=== PATIENT | male | born 1940 | race Caucasian/White ===

== ENCOUNTER → 2017-12-04 11:07 | Outpatient (CLI) | payer MEDICARE, SELFPAY ==
[2017-12-04 12:37] LABS: Hematocrit 39.1 % (40-54); Mean Corp Hgb Conc 33.2 g/gl (32-36); Mean Corpuscular Volume 93.1 fL (80-94); Mean Platelet Vol. 9.8 fl (6.2-12.0); Platelet Count 185 K/mm3 (150-450); RBC Distribution Width CV 14.3 % (11.6-14.6); RBC Distribution Width SD 47.3 fl (35.1-43.9); White Blood Count 4.8 K/mm3 (4.4-11.0)
[2017-12-04 12:38] LABS: Scan Indicated on CBC? Y/N NO
[2017-12-04 13:22] LABS: Vitamin B12 481 pg/mL (211-911); Vitamin D,25 Hydroxy 26.6 ng/mL (29.95-100.01)
[2017-12-04 13:25] LABS: AST(SGOT) 17 U/L (15-37); Alanine Aminotransfer ALT/SGPT 16 U/L (16-61); Albumin, Serum 3.5 g/dL (3.2-5.0); Alkaline Phosphatase 123 U/L (45-117); Anion Gap 8 (5-15); BUN 16 mg/dL (7-18); BUN/Creat Ratio 17.6 RATIO (10-20); Calcium,Total 9.6 mg/dL (8.5-10.1); Chloride 107 mmol/L (98-107); Creatinine, Serum 0.91 mg/dL (0.70-1.30); EST Glomerular Filtration Rate 86 mL/min (>60); Est Glom Filt Rate - Afr Amer 104 mL/min (>60); Globulin 3.6 g/dL (2.2-4.2); Glucose 81 mg/dL (74-106); Potassium 3.6 mmol/L (3.5-5.1); Protein, Total 7.1 g/dL (6.4-8.2); Sodium Level 141 mmol/L (136-145); Thyroid Stim Hormone (TSH) 1.72 uIU/mL (0.358-3.74)
== END ==
PROVIDERS: Family Provider Family Medicine; PCP Family Medicine; Visit Provider Family Medicine
DX: I10 Essential (primary) hypertension (principal); D51.8 Other vitamin B12 deficiency anemias; R41.3 Other amnesia; E55.9 Vitamin D deficiency, unspecified
CPT/HCPCS: 36415; 80053; 82306; 82607; 84443; 85027

== ENCOUNTER → 2018-09-23 11:40 | Outpatient (CLI) | payer MEDICARE, SELFPAY ==
[2018-09-23 14:17] LABS: Absolute Lymphocyte Count 0.93 X10^3/ul (0.83-4.51); Absolute Neutrophil Count 7.7 X10^3/uL (2.0-7.7); Basophil# 0.02 X10^3/uL; Basophil% 0.2 % (0-1); Eosinophil# 0.01 X10^3/uL; Eosinophils% 0.1 % (0-5); Hematocrit 36.1 % (40-54); Hemoglobin 11.8 g/dl (13.0-16.5); Lymphocyte # 0.93 X10^3/ul (4.0); Lymphocyte % 9.9 % (19-41); Mean Corp Hgb Conc 32.7 g/gl (32-36); Mean Corpuscular Volume 94.8 fL (80-94); Mean Platelet Vol. 9.8 fl (6.2-12.0); Monocyte# 0.72 X10^3/uL; Monocyte% 7.6 % (0-10); Neutrophil # 7.72 X10^3/uL (2.7-7.7); Platelet Count 212 K/mm3 (150-450); RBC Distribution Width CV 14.9 % (11.6-14.6); RBC Distribution Width SD 51.5 fl (35.1-43.9); Red Blood Count 3.81 M/mm3 (4.6-6.2); White Blood Count 9.4 K/mm3 (4.4-11.0)
[2018-09-23 14:18] LABS: Differential Indicated SCAN CRITERIA MET; POSITIVE COUNT NO; POSITIVE DIFFERENTIAL NO; POSITIVE MORPHOLOGY YES
[2018-09-23 14:32] LABS: ALB/GLOB Ratio 0.9 RATIO (0.9-2.4); AST(SGOT) 10 U/L (15-37); Alanine Aminotransfer ALT/SGPT 14 U/L (16-61); Albumin, Serum 3.5 g/dL (3.2-5.0); Alkaline Phosphatase 166 U/L (45-117); Anion Gap 12 (5-15); BUN 21 mg/dL (7-18); Calcium,Total 9.9 mg/dL (8.5-10.1); Chloride 107 mmol/L (98-107); EST Glomerular Filtration Rate 77 mL/min (>60); Erythrocyte Sedimentation Rate 30 mm/hr (0-20); Est Glom Filt Rate - Afr Amer 93 mL/min (>60); Globulin 3.9 g/dL (2.2-4.2); Glucose 95 mg/dL (74-106); Potassium 3.4 mmol/L (3.5-5.1); Prealbumin 18.2 mg/dL (20.0-40.0); Protein, Total 7.4 g/dL (6.4-8.2); Sodium Level 142 mmol/L (136-145); Thyroid Stim Hormone (TSH) 1.96 uIU/mL (0.358-3.74)
[2018-09-23 14:35] LABS: Differential Comment SCANNED; Vitamin D,25 Hydroxy 21.6 ng/mL (29.95-100.01)
[2018-09-23 14:36] LABS: Anisocytosis 2+; Macrocytosis 1+; Microcytosis 1+
== END ==
PROVIDERS: Family Provider Family Medicine; PCP Family Medicine; Visit Provider Family Medicine
DX: R63.4 Abnormal weight loss (principal)
CPT/HCPCS: 36415; 80053; 82306; 84134; 84443; 85025; 85652

== ENCOUNTER → 2019-03-28 15:18 | Outpatient (CLI) | payer MEDICARE, SELFPAY ==
[2019-03-28 17:50] LABS: Anion Gap 12 (5-15); BUN 29 mg/dL (7-18); BUN/Creat Ratio 25.2 RATIO (10-20); Calcium,Total 10.4 mg/dL (8.5-10.1); Chloride 107 mmol/L (98-107); Creatinine, Serum 1.15 mg/dL (0.70-1.30); EST Glomerular Filtration Rate 65 mL/min (>60); Est Glom Filt Rate - Afr Amer 79 mL/min (>60); Glucose 99 mg/dL (74-106); Potassium 3.6 mmol/L (3.5-5.1); Prealbumin 20.8 mg/dL (20.0-40.0); Sodium Level 145 mmol/L (136-145)
[2019-03-29 09:56] LABS: Vitamin B12 > 2000 pg/mL (211-911); Vitamin D,25 Hydroxy 22.6 ng/mL (29.95-100.01)
[2019-03-29 14:33] LABS: Magnesium 2.4 mg/dL (1.6-2.6); Phosphorus 3.4 mg/dL (2.5-4.9)
[2019-03-29 14:49] LABS: PTHIN 46.8 pg/mL (18.4-80.1)
== END ==
PROVIDERS: Family Provider Family Medicine; PCP Family Medicine; Referring Provider Family Medicine; Visit Provider Family Medicine
DX: I10 Essential (primary) hypertension (principal); R41.3 Other amnesia; E55.9 Vitamin D deficiency, unspecified; D51.8 Other vitamin B12 deficiency anemias
CPT/HCPCS: 36415; 80048; 82306; 82607; 83735; 83970; 84100; 84134

== ENCOUNTER → 2019-04-21 12:19 | Outpatient (CLI) | payer MEDICARE, SELFPAY ==
[2019-04-21 13:51] LABS: Hematocrit 37.1 % (40-54); Hemoglobin 11.9 g/dL (13.0-16.5); Mean Corp Hgb Conc 32.1 g/dL (32-36); Mean Corpuscular Volume 96.6 fL (80-94); Mean Platelet Vol. 9.8 fl (6.2-12.0); Platelet Count 224 K/mm3 (150-450); RBC Distribution Width CV 13.8 % (11.6-14.6); RBC Distribution Width SD 49.1 fl (35.1-43.9); Red Blood Count 3.84 M/mm3 (4.6-6.2); White Blood Count 5.9 K/mm3 (4.4-11.0)
[2019-04-21 14:11] LABS: PTHIN 56.4 pg/mL (18.4-80.1)
[2019-04-21 14:18] LABS: Anion Gap 6 (5-15); BUN 19 mg/dL (7-18); BUN/Creat Ratio 20.6 RATIO (10-20); Calcium,Total 9.5 mg/dL (8.5-10.1); Chloride 111 mmol/L (98-107); Creatinine, Serum 0.92 mg/dL (0.70-1.30); EST Glomerular Filtration Rate 84 mL/min (>60); Est Glom Filt Rate - Afr Amer 102 mL/min (>60); Glucose 101 mg/dL (74-106); Magnesium 2.4 mg/dL (1.6-2.6); Phosphorus 2.4 mg/dL (2.5-4.9); Potassium 3.7 mmol/L (3.5-5.1); Sodium Level 144 mmol/L (136-145)
== END ==
PROVIDERS: Family Provider Family Medicine; PCP Family Medicine; Referring Provider Family Medicine; Visit Provider Family Medicine
DX: R55 Syncope and collapse (principal); E83.52 Hypercalcemia
CPT/HCPCS: 36415; 80048; 82330; 83735; 83970; 84100; 84443; 85027

== ENCOUNTER 2019-05-19 10:37 | Observation (INO) | payer MEDICARE, SELFPAY ==
[2019-05-19] VITALS (7 sets, daily range): BP systolic 122–150; BP diastolic 61–117; PULSE 56–89; RESP 16–20; TEMP 36.4–37.1; O2SAT 95–100; BMI 23.6; BMI 21.8
--- NOTE | 2019-05-19 11:44 | EKG12_ITS ---
Test Reason : ALT LOC Blood Pressure : / mmHG Vent. Rate : 087 BPM Atrial Rate : 087 BPM P-R Int : 166 ms QRS Dur : 096 ms QT Int : 414 ms P-R-T Axes : 062 041 -20 degrees QTc Int : 498 ms Sinus rhythm with frequent Premature ventricular complexes Left ventricular hypertrophy with repolarization abnormality Prolonged QT Abnormal ECG Confirmed by AMADA FAN, MARCE ([id number]), electronic news gathering editor DARREN DANIEL ([id number]) on 05/20/2019 1:26:36 PM Referred By: ANGIE Confirmed By:AMILCAR YBARRA MD
--- NOTE | 2019-05-19 11:44 | CT_ITS ---
STUDY: CT BRAIN WITHOUT CONTRAST REASON FOR EXAM: Male, 79 years old. Confusion. RADIATION DOSAGE (If Supplied By Facility): CTDIvol = ( 44.99 ) mGy, DLP = ( 863.60 ) mGycm TECHNIQUE: Transaxial CT imaging of the brain was performed without administration of intravenous contrast material. Individualized dose optimization techniques were used for this CT. COMPARISON: Comparison is made with prior study November 19, 2015. FINDINGS: Normal soft tissue structures. Normal calvarium. There is mild cerebral atrophy with widening of the extra-axial spaces and ventricular dilatation. There are areas of decreased attenuation within the white matter tracts of the supratentorial brain, consistent with microvascular disease changes. Normal basal ganglia and thalami. Normal brainstem. There is mild cerebellar atrophy. There is no intracranial hemorrhage. There are no findings of an acute ischemic infarction. Atherosclerotic calcification of the vertebral arteries and cavernous portions of the internal carotid arteries bilaterally. Normal visualized paranasal sinuses. CT/Brain/Head without Contrast IMPRESSION: Chronic involutional changes of the brain. Electronically Signed: Cuong Pierson, at 12:48 EDT , Service support ,
--- NOTE | 2019-05-19 11:47 | RAD_ITS ---
STUDY: X-RAY CHEST REASON FOR EXAM: Male, 79 years old. Altered mental status. Confusion. TECHNIQUE: Single AP portable view of the chest. COMPARISON: Comparison is made with prior study November 19, 2015. FINDINGS: EKG electrodes are seen. Stable mild increased linear markings at the lung bases suggestive of linear scarring. There is no demonstrated pleural abnormality. Normal size heart. Normal mediastinum and rory. Normal visualized pulmonary arteries. There is atherosclerotic calcification of the aortic arch with tortuosity. There is a levoscoliosis of the thoracic spine. Normal visualized ribs, clavicles, and shoulders. Large hiatal hernia. RAD/Chest 1 View (Portable) IMPRESSION: Large hiatal hernia. Electronically Signed: Cuong Pierson, at 12:22 EDT , Service support ,
[2019-05-19 12:20] LABS: Absolute Lymphocyte Count 0.73 X10^3/uL (0.83-4.51); Absolute Neutrophil Count 10.5 X10^3/uL (2.0-7.7); Basophil# 0.07 X10^3/uL; Basophil% 0.6 % (0-1); Eosinophil# 0.05 X10^3/uL; Eosinophils% 0.4 % (0-5); Hematocrit 38.3 % (40-54); Hemoglobin 12.5 g/dL (13.0-16.5); Lymphocyte # 0.73 X10^3/ul (4.0); Lymphocyte % 5.8 % (19-41); Mean Corp Hgb Conc 32.6 g/dL (32-36); Mean Corpuscular Hgb 30.7 pg (27.0-32.0); Mean Corpuscular Volume 94.1 fL (80-94); Mean Platelet Vol. 9.7 fl (6.2-12.0); Monocyte# 0.58 X10^3/uL; Monocyte% 4.6 % (0-10); NRBC Flagged by Analyzer 0 % (0-5); Neutrophil # 10.53 X10^3/uL (2.7-7.7); Platelet Count 263 K/mm3 (150-450); RBC Distribution Width CV 13.9 % (11.6-14.6); RBC Distribution Width SD 47.6 fl (35.1-43.9); Red Blood Count 4.07 M/mm3 (4.6-6.2); White Blood Count 12.5 K/mm3 (4.4-11.0)
[2019-05-19 12:48] LABS: AST(SGOT) 35 U/L (15-37); Alanine Aminotransfer ALT/SGPT 26 U/L (16-61); Albumin, Serum 2.5 g/dL (3.2-5.0); Alkaline Phosphatase 147 U/L (45-117); Anion Gap 7 (5-15); BUN 15 mg/dL (7-18); Bilirubin, Direct 0.18 mg/dL (0.00-0.30); Chloride 105 mmol/L (98-107); Creatinine, Serum 0.88 mg/dL (0.70-1.30); EST Glomerular Filtration Rate 89 mL/min (>60); Est Glom Filt Rate - Afr Amer 107 mL/min (>60); Estimated Creatinine Clearance 68.07 ml/min; Globulin 4.3 g/dL (2.2-4.2); Glucose 115 mg/dL (74-106); Lipase 68 U/L (73-393); Potassium 4.7 mmol/L (3.5-5.1); Protein, Total 6.8 g/dL (6.4-8.2); Sodium Level 139 mmol/L (136-145)
[2019-05-19 12:52] LABS: Mucous, Urine 0 SEEN /hpf (<or=2+); Red Blood Cells-Urine 0 SEEN /hpf (0-5)
[2019-05-19 12:53] LABS: Color, Urine Yellow (Yellow); Glucose, Dipstick Normal (Normal); Ketone-Dipstick Negative (Negative); Leukocyte Esterase-Dipstick 25 /ul (Negative); Nitrite-Dipstick Negative (Negative); Occult Blood-Urine 25 /ul (Negative); Protein-Dipstick 30 mg/dl (Negative); Urine Bilirubin Dipstick Negative (Negative); Urine Clarity Clear (Clear); Urine Urobilinogen Normal (Normal)
[2019-05-19 12:55] LABS: Lactic Acid 1.8 mmol/L (0.4-2.0)
[2019-05-19 13:05] LABS: Bacteria RARE /hpf (None Seen); Squamous Epithelial Cells - UA 0-5 SEEN /hpf (0-5); White Blood Cells 0-5 SEEN /hpf (0-5)
[2019-05-19] MEDS: 0.9% Normal Saline 1,000 ML 150 ML IV (13:15)
--- NOTE | 2019-05-19 15:25 | CASEMGMT ---
RN CM Assessment Introduced role of RN CM to patient, Dtr Rae and Dtr Cinthia at bedside.? Patient is alert, baseline mentation per Dtrs is age appropriate, oriented to person, situation, but does get confused with time/date such as year- states d/t no need to worry about it. Per Dtrs patient is now getting back to his baseline with mentation currently. ?Care providers, pharmacy, and demographics verified with Dtrs. Patient Physical Address: [address] [place] [address], [address], [facility] [id number] Presentation: Sent from [facility]- just got there last night, d/t decreased appetite, periods of Apnea, and ALOC. Per Dtrs was at [facility] and Dc'd to [facility], had a UTI with confusion. Re-Admit: No Barriers/Issues: Dtrs would like to speak with re:DC plan for SNF and what would be most appropriate. There for PT/OT. Dtrs state that their [facility] choice was [facility] and were getting things finalized when they said they could not take him d/t being on Haldol. States second choice was [facility]. State last dose of Haldol was yesterday. Now going to start on Seroquel. State concern with patient living alone and having difficulty with Docudose d/t not knowing what day or time it is. States that they faxed over paperwork on Thursday to [employer] to try to get Aide assistance to assist with prompting for medications and eating. [facility] patient fell approx 1 month ago and was encouraged to use a cane but does not and still ambulating Independently. [facility] patient is going to need a walker soon. Has 3 dtrs and multiple grandchildren, community health good support system. PCP: Freddy Park Specialists: Pain- Dr Adamson Preferred Pharmacy: Usually uses [facility], but will use the SNF pharmacy on [address] Insurance: [employer] HMO Rx Benefit:?Yes LNOK: Dtr Rae Elizabeth, Dtr Cinthia, Dtr Humera Rose LW/HPOA: Yes both, aware not on file with [facility], states will bring in a copy. HPOA- Dtr Rae Elizabeth Living Arrangements:? Lives alone in a ground level apartment in [facility], with no steps to enter. ADL?s: Independent with ambulation and ADLs, except medication issue- see above. Transportation: Dtrs transport, denies any issues. DME: None HHC: None SNF: Currently at [facility] as of last night Goal: Dtrs would like to s/w regarding DC plan-see above issues/concern. Dtr Rae Elizabeth #[phone], Dtr Cinthia #[phone], Dtr Humera Rose # verified correct on demographics. DC PLAN: SNF. Joan Mccloud RNCM
[2019-05-19] MEDS: 0.9% Normal Saline 1,000 ML 100 ML IV (16:12)
--- NOTE | 2019-05-19 16:12 | ED.VISSUMM ---
- ER Visit Summary Date of Service: 05/19/19 Chief Complaint: Confusion and weakness History of Present Illness: The patient is a 79 M who was originally living at home. On Thursday morning he woke sustained a fall and was seen at outside facility. There he was diagnosed with a left greater trochanter fracture was felt to be nonoperative. He has had prior left hip prosthesis placed. Is felt that the fall was due to a UTI he was placed on Keflex. He was admitted into the hospital. Family tells me he was started on morphine and also was receiving Haldol for some agitation and sundowning-like symptoms. He baseline probably has a mild degree of dementia having had difficulty with dates and names. After 2 days in the hospital [facility]. Family states he really has not been eating or drinking very much especially over the last 2 days. They were also told that they were concerned he may have a heart rhythm abnormality. He states that about a month ago he wore a Holter monitor maybe he had A. fib. No fevers. Physical Examination: Afebrile vital signs are stable Gen: Well-nourished well-developed Head: Normocephalic atraumatic Eyes: Perrl EOMI ENT: TMs clear no rhinorrhea dry mucous membranes Neck: Supple no lymphadenopathy no JVD nontender CVS: Regular rate rhythm 2 out of 6 systolic murmur Respiratory: No distress clear to auscultation bilaterally chest nontender Abdomen: Soft nontender nondistended normal bowel sounds no masses Back: Nontender Extremity: Pain with movement of left hip no edema Skin: Normal color no rash Neuro: Lethargic but will answer. Moves all extremities. Psych: Normal affect normal mood Test Results: Basic labs showed a white count 12.5. Troponin negative lactic acid 1.8. Urinalysis normal. Chest x-ray showed a large hiatal hernia. CT brain negative. EKG sinus rate of 87 with frequent Emergency Department Course and Treatment: I think the patient basically has hydration and delirium due to combination of underlying dementia in combination with Haldol and morphine along with being taken out of his normal living quarters in the setting of a broken hip. Plan will be for admission limiting offending agents and continued hydration. Impression: 1. Medication induced delirium 2. Dehydration This note was generated with [employer] or [employer] software. It may contain incorrect words, spelling, and punctuation that were not noted in review of the chart prior to signing ED Disposition - Plan for ED Patient: Disposition: Acute Care [facility]
--- NOTE | 2019-05-19 16:58 | HP.PCM_ITS ---
Problem List (1) Closed left hip fracture Status: Acute (2) Dementia Status: Acute (3) BPH (benign prostatic hyperplasia) Status: Acute (4) Delirium Status: Acute (5) Iron deficiency anemia Status: Acute (6) Depression Status: Acute History of Present Illness Date of Admission: 05/19/19 Chief Complaint: Delirium The patient is a 79 year old M with PMH as below who presents from the halfway after being discharged from [facility]. A few days ago he fell and had a greater trochanteric hip fracture on the left that was deemed nonoperable at that time. He was also found to have was felt to be a UTI leading to his confusion. He was started on Keflex as an inpatient and then and and was also then started on Haldol twice daily. He has not eaten for the last 3 days and was transferred from [facility] to [facility]. At the halfway it was thought that maybe he might be dehydrated therefore they stopped his Haldol and they tried to get IV fluids are but they could not get an IV so they sent him here to the ER. On transfer to the ER he was very drowsy and he could not have a conversation with him, by the time that I saw him he was alert and oriented to himself and his age. He did not know the year where he was. In the ER his CBC was significant for a white blood cell count of 12.5 and a left shift and his lactic acid was normal and his electrolytes were unremarkable, and urine was also unremarkable. Past Medical History Allergies oseltamivir [From Tamiflu] Allergy (Verified 05/19/19 10:43) Unknown Home Medications: Ambulatory Orders Medication Instructions Recorded Diltiazem CD [Cardizem CD] 240 mg PO DAILY 11/12/15 Paroxetine HCl [Paxil] 40 mg PO DAILY 11/12/15 Tamsulosin HCl [Flomax] 0.4 mg PO DAILY 11/12/15 Aspirin [Aspir 81] 81 mg PO DAILY 05/19/19 Bupropion HCl [Wellbutrin Xl] 300 mg PO DAILY 05/19/19 Cephalexin [Keflex] 250 mg PO Q12 05/19/19 Donepezil HCl [Aricept] 10 mg PO QHS 05/19/19 Ferrous Sulfate [Ferosul] 325 mg PO DAILY 05/19/19 Memantine Hydrochloride [Namenda] 5 mg PO QHS 05/19/19 Trazodone HCl 100 mg PO QHS 05/19/19 Surgical History: total hip arthroplasty - left, - - Ankle and back surgery Lives: Long-Term Smoking Status: Current some day smoker Tobacco Use: Cigarettes Alcohol: None Drugs: None - *Family History Maternal History Items: No pertinent history Paternal History Items: No pertinent history Review of Systems Constitutional: Denies: Chills, Fever, Weight Change HEENT: Denies: Head Aches, Sinus Congestion, Sinus Drainage Cardiovascular: Denies: Chest Pain, Palpitations Respiratory: Denies: Cough, Shortness of breath at rest, Sputum production Gastrointestinal: Denies: Abdominal Pain, Nausea, Vomiting Genitourinary: Denies: Dysuria Musculoskeletal: Reports: Leg Pain - Left hip. Denies: Joint Pain, Joint Tenderness Skin: Denies: Rash, Wounds Neurological: Denies: Numbness, Tingling, Focal weakness Psychiatric: Denies: Anxiety, Depression Hematologic/ Lymphatic: Denies: Easy Bruising, Easy Bleeding VTE Information - Inpt Only VTE Present on Admission: No Patient Problems: Active and Suspected Problems Closed left hip fracture (Acute) Dementia (Acute) BPH (benign prostatic hyperplasia) (Acute) Delirium (Acute) Iron deficiency anemia (Acute) Depression (Acute) - Physical Exam General: Alert, Cooperative, No apparent distress, - - Oriented to person and he knows she is in a hospital HEENT: Atraumatic, PERRLA, EOMI, Normocephalic Oral: Dry Mucosa Neck: Supple, No JVD Lungs: Clear to auscultation, Normal air movement, No rhonchi, No wheeze, No rales, Diminished Cardiovascular: Regular rate, Regular Rhythm, Normal S1, Normal S2, Murmur - 3 out of 6 CECILIO RUSB which is known Abdomen: Soft, Non Tender, Non-Distended, No Hepato-splenomegaly Extremities: No edema, Capillary Refill Less than 3 Seconds Skin: No rashes, No breakdown Musculoskeletal: Tenderness - To palpation of left hip no skin breakdown or signs of infection Neurological: Neuro grossly intact, Sensory exam intact to light touch and pain Psych/Mental Status: Normal Affect, Appropriate, - - Is a little bit tired but much more alert according to the daughters compared to this morning Vital Signs Temp Pulse Resp BP Pulse Ox 98.8 F 84 18 138/88 H 98 05/19/19 15:56 05/19/19 16:20 05/19/19 15:56 05/19/19 15:56 05/19/19 15:56 Oxygen Flow Rate (L/min) 2 Oxygen Delivery Method Nasal Cannula Weight: 147 lb 11.355 oz Body Mass Index (BMI) 21.8 Intake and Output for Last 24 Hours 05/17/19 05/18/19 05/19/19 23:59 23:59 23:59 Intake Total 442.5 / 442.5 Balance 442.5 / 442.5 Laboratory Tests Past 24 Hrs 05/19/19 05/19/19 05/19/19 12:00 12:00 12:05 WBC 12.5 H RBC 4.07 L Hgb 12.5 L Hct 38.3 L MCV 94.1 H MCH 30.7 MCHC 32.6 RDW Std Deviation 47.6 H RDW Coeff of Mandy 13.9 Plt Count 263 MPV 9.7 Immature Gran % (Auto) 4.600 H Neut % (Auto) 84.0 H Lymph % (Auto) 5.8 L [place] % (Auto) 4.6 Eos % (Auto) 0.4 Baso % (Auto) 0.6 Absolute Neuts (auto) 10.5 H Absolute Lymphs (auto) 0.73 L Nucleated RBC % 0 Sodium 139 Potassium 4.7 Chloride 105 Carbon Dioxide 27.0 Anion Gap 7 BUN 15 Creatinine 0.88 Estim Creat Clear Calc 68.07 Est GFR (MDRD) Af Amer 107 Est GFR (MDRD) Non-Af 89 BUN/Creatinine Ratio 17.0 Glucose 115 H Lactic Acid 1.8 Calcium 10.0 Total Bilirubin 0.70 Direct Bilirubin 0.18 AST 35 ALT 26 Alkaline Phosphatase 147 H Troponin I < 0.015 Total Protein 6.8 Albumin 2.5 L Globulin 4.3 H Lipase 68 L Urine Color Urine Clarity Urine pH Ur Specific Paulina Urine Protein Urine Glucose (UA) Urine Ketones Urine Occult Blood Urine Nitrite Urine Bilirubin Urine Urobilinogen Ur Leukocyte Esterase Urine RBC Urine WBC Ur Squamous Epith Cells Urine Bacteria Urine Mucus 05/19/19 12:45 WBC RBC Hgb Hct MCV MCH MCHC RDW Std Deviation RDW Coeff of Mandy Plt Count MPV Immature Gran % (Auto) Neut % (Auto) Lymph % (Auto) [place] % (Auto) Eos % (Auto) Baso % (Auto) Absolute Neuts (auto) Absolute Lymphs (auto) Nucleated RBC % Sodium Potassium Chloride Carbon Dioxide Anion Gap BUN Creatinine Estim Creat Clear Calc Est GFR (MDRD) Af Amer Est GFR (MDRD) Non-Af BUN/Creatinine Ratio Glucose Lactic Acid Calcium Total Bilirubin Direct Bilirubin AST ALT Alkaline Phosphatase Troponin I Total Protein Albumin Globulin Lipase Urine Color Yellow Urine Clarity Clear Urine pH 7.0 Ur Specific Paulina 1.010 Urine Protein 30 H Urine Glucose (UA) Normal Urine Ketones Negative Urine Occult Blood 25 H Urine Nitrite Negative Urine Bilirubin Negative Urine Urobilinogen Normal Ur Leukocyte Esterase 25 H Urine RBC 0 SEEN Urine WBC 0-5 SEEN Ur Squamous Epith Cells 0-5 SEEN Urine Bacteria RARE Urine Mucus 0 SEEN Assessment/Plan All Active Problems Closed left hip fracture (Acute) Dementia (Acute) BPH (benign prostatic hyperplasia) (Acute) Delirium (Acute) Iron deficiency anemia (Acute) Depression (Acute) 1. Delirium and altered mental status secondary to medications, dehydration, and recent UTI -He is received 5 days of Keflex treatment therefore will discontinue his Keflex and monitor his white blood cell count as well as his fevers and then can reinitiate treatment based on clinical exam -We will hold all Haldol and start with a very low dose of Seroquel for at night only and monitor -Continue with IV fluids -He is much more alert and hopefully this was just secondary to delirium and the significant amount of morphine that he was receiving in the hospital for his hip pain -We will hold off of narcotics for now for his hip pain just Tylenol if we need to do more than he can proceed with a low-dose oxycodone 2. Left greater trochanteric hip fracture -Nonoperable -Pain meds as needed, the area does not look infected -PT/OT with plans to return to rehab for therapy 3. HTN -Blood pressures been stable -Continue with Cardizem and aspirin 4. Dementia/depression -There has been some decline per the family and his functioning over the last several years -continue with Namenda and Aricept -He is stable from a depression standpoint though according to 1 of the ER nurses he did cry a couple times on their evaluation because the nurse reminded him of his granddaughter, will continue with Wellbutrin and Paxil 5. BPH -Stable -Continue with Flomax DVT: Lovenox Code Visit OBSV E&M: 35614 Initial observation care L2
[2019-05-19] MEDS: QUEtiapine 25 MG Tablet PO (22:02)
[2019-05-19] MEDS: Memantine Hydrochloride 5 MG Tablet PO (22:02)
[2019-05-19] MEDS: Donepezil HCl 10 MG Tablet PO (22:02)
[2019-05-19] MEDS: Acetaminophen 325 MG Tablet 650 MG PO (22:05)
[2019-05-20] MEDS: 0.9% Normal Saline 1,000 ML 100 ML IV ×2 (02:15→12:07)
[2019-05-20 04:00] VITALS: BP 157/91; PULSE 76; RESP 16; TEMP 36.6; O2SAT 97
--- NOTE | 2019-05-20 05:16 | NURSING ---
pt pulled his right fa iv site out, pt had another site.
[2019-05-20 07:39] LABS: Absolute Lymphocyte Count 0.85 X10^3/uL (0.83-4.51); Basophil# 0.08 X10^3/uL; Basophil% 0.8 % (0-1); Eosinophil# 0.15 X10^3/uL; Eosinophils% 1.5 % (0-5); Hemoglobin 11.1 g/dL (13.0-16.5); Lymphocyte # 0.85 X10^3/ul (4.0); Lymphocyte % 8.4 % (19-41); Mean Corp Hgb Conc 32.6 g/dL (32-36); Mean Platelet Vol. 9.5 fl (6.2-12.0); Monocyte# 0.49 X10^3/uL; Monocyte% 4.8 % (0-10); NRBC Flagged by Analyzer 0 % (0-5); Neutrophil # 8.04 X10^3/uL (2.7-7.7); Neutrophil % 79.6 % (47-70); Platelet Count 243 K/mm3 (150-450); RBC Distribution Width CV 13.7 % (11.6-14.6); RBC Distribution Width SD 47.9 fl (35.1-43.9); Red Blood Count 3.58 M/mm3 (4.6-6.2); White Blood Count 10.1 K/mm3 (4.4-11.0)
[2019-05-20 07:48] LABS: Anion Gap 5 (5-15); BUN 14 mg/dL (7-18); BUN/Creat Ratio 18.6 RATIO (10-20); Calcium,Total 9.3 mg/dL (8.5-10.1); Chloride 109 mmol/L (98-107); Creatinine, Serum 0.75 mg/dL (0.70-1.30); EST Glomerular Filtration Rate 106 mL/min (>60); Est Glom Filt Rate - Afr Amer 129 mL/min (>60); Estimated Creatinine Clearance 56.76 ml/min; Glucose 90 mg/dL (74-106); Potassium 3.7 mmol/L (3.5-5.1); Sodium Level 141 mmol/L (136-145)
[2019-05-20 10:00] VITALS: BP 117/72; PULSE 59; RESP 18; TEMP 36.6; O2SAT 97
[2019-05-20] MEDS: buPROPion (XL) 300 MG TABLET.XL PO (10:08)
[2019-05-20] MEDS: Ferrous Sulfate 325 MG Tablet PO (10:08)
[2019-05-20] MEDS: Aspirin E.C. 81 MG Tablet PO (10:08)
[2019-05-20] MEDS: Enoxaparin 40 MG/0.4 ML Syringe SC (10:08)
[2019-05-20] MEDS: dilTIAZem CD 240 MG Capsule PO (10:09)
[2019-05-20] MEDS: Tamsulosin HCl 0.4 MG Capsule PO (10:09)
--- NOTE | 2019-05-20 10:38 | CASEMGMT ---
Social Work SW met with pt and daughter Cinthia in room. Per Cinthia, Pt was previously at [facility] and family wanted placement at [facility]. [facility] was unable to accept because pt was on Haldol. Pt transferred to [facility]. Pt now at [facility] and pt Haldol has been d/c and seroquel started. Cinthia requesting SW check with [facility] to see if they will reconsider admission. If [facility] is still unable to accept, pt will return to [facility]. left with Naina at [facility] and clinicals faxed. Will await determination if [facility] can accept pt. ERWIN Mendoza
--- NOTE | 2019-05-20 11:09 | PCM.TXEXTCAR ---
- Diet 05/19/19 15:58 Diet: Regular Diet Food consistency:: Regular Liquid Consistency:: Regular/Thin Is pt able to select menu?: No - Routine Orders/Code Status Code Status: DNRCC-A - Wound(s) LT FA Wound Type: Skin Tear LT KNEE Wound Type: Abrasion LT POSTERIOR SHOULDER - HOLLAND PROMINENCE Wound Type: Pressure Injury right hip holland areas Wound Type: holland areas, red - Therapies Weight Bearing: Full weight bearing Physical Therapy: Eval and Treat Occupational Therapy: Eval and Treat - Allergies/Procedures Done in Hospital Allergies/Adverse Reactions: Allergies oseltamivir [From Tamiflu] Allergy (Verified 05/19/19 10:43) Unknown Procedures: None - Type of Care/Length of Stay Estimated LOS: Convalescent Care Less Than 30 days Type of Care Needed: Skilled Rehab Potential: Fair Prognosis: Fair - Additional Orders/Day of Discharge Day of Discharge: 05/20/19 - Follow Up Care Primary Care Physician: Reno Park MD [Primary Care Provider] - Within 2 Weeks Please Follow Up With: Movement disorder clinic When: 3-6 weeks
--- NOTE | 2019-05-20 11:11 | DS.PCM_ITS ---
Discharge Date and Diagnosis - Problem List Patient Problems: Active and Suspected Problems Delirium (Acute) Date of Admission: 05/19/19 Date of Discharge: 05/20/19 - Primary Discharge Diagnosis Active and Suspected Problems Closed left hip fracture (Acute) Dementia (Acute) BPH (benign prostatic hyperplasia) (Acute) Delirium (Acute) Iron deficiency anemia (Acute) Depression (Acute) Hospital Course and Treatment Operations: None Procedures: None Summary of Care Provided: The patient is a 79 year old M presents with confusion from [facility]. Patient was discharged to [facility] on the after sustaining a fracture to nonweightbearing aspect of his left hip. Patient was noted to be confused while he was there but he was there less than 18 hours. Sent here and evaluated and his work-up was unremarkable. Potentiating medications were held and patient's mental status improved. Patient's daughter, Cinthia, is present today states that he looks better than she is seen in the past week to week and a half. I have advised to continue to hold his Namenda as well as Aricept and to avoid any kind of narcotic medications. Patient has a known history of dementia and has been evaluated by psychiatrist who states that he has age- appropriate dementia. I am also concerned patient may have a other process, such as movement disorder such as Parkinson's. On exam, patient has a mast feces he has impaired vertical saccades. I have advised her to have a follow-up with movement disorder specialist to be more thoroughly evaluated for possibility of such a disease process. [] Patient Problems: Active and Suspected Problems Delirium (Acute) - Physical Exam General: Alert, No apparent distress HEENT: Atraumatic, Normocephalic, - - Masked facies. Impaired vertical saccades Oral: Moist Mucosa, No Gingival or Mucosal Lesions/ Ulcerations Psych/Mental Status: Appropriate, Flat Affect Vital Signs Temp Pulse Resp BP Pulse Ox 36.6 C 59 L 18 117/72 97 05/20/19 10:00 05/20/19 10:00 05/20/19 10:00 05/20/19 10:05/20/19 10:00 Oxygen Flow Rate (L/min) 2 Oxygen Delivery Method Room Air Weight: 67 kg Body Mass Index (BMI) 21.8 Intake and Output for Last 24 Hours 05/18/19 05/19/19 05/20/19 23:59 23:59 23:59 Intake Total 442.5 / 642.5 1300 / 1300 Balance 442.5 / 642.5 1300 / 1300 Laboratory Tests Past 24 Hrs 05/19/19 05/19/19 05/19/19 12:00 12:00 12:05 WBC 12.5 H RBC 4.07 L Hgb 12.5 L Hct 38.3 L MCV 94.1 H MCH 30.7 MCHC 32.6 RDW Std Deviation 47.6 H RDW Coeff of Mandy 13.9 Plt Count 263 MPV 9.7 Immature Gran % (Auto) 4.600 H Neut % (Auto) 84.0 H Lymph % (Auto) 5.8 L [place] % (Auto) 4.6 Eos % (Auto) 0.4 Baso % (Auto) 0.6 Absolute Neuts (auto) 10.5 H Absolute Lymphs (auto) 0.73 L Nucleated RBC % 0 Sodium 139 Potassium 4.7 Chloride 105 Carbon Dioxide 27.0 Anion Gap 7 BUN 15 Creatinine 0.88 Estim Creat Clear Calc 68.07 Est GFR (MDRD) Af Amer 107 Est GFR (MDRD) Non-Af 89 BUN/Creatinine Ratio 17.0 Glucose 115 H Lactic Acid 1.8 Calcium 10.0 Total Bilirubin 0.70 Direct Bilirubin 0.18 AST 35 ALT 26 Alkaline Phosphatase 147 H Troponin I < 0.015 Total Protein 6.8 Albumin 2.5 L Globulin 4.3 H Lipase 68 L Urine Color Urine Clarity Urine pH Ur Specific [place] Urine Protein Urine Glucose (UA) Urine Ketones Urine Occult Blood Urine Nitrite Urine Bilirubin Urine Urobilinogen Ur Leukocyte Esterase Urine RBC Urine WBC Ur Squamous Epith Cells Urine Bacteria Urine Mucus 05/19/19 05/20/19 05/20/19 12:45 06:58 06:58 WBC 10.1 RBC 3.58 L Hgb 11.1 L Hct 34.0 L MCV 95.0 H MCH 31.0 MCHC 32.6 RDW Std Deviation 47.9 H RDW Coeff of Mandy 13.7 Plt Count 243 MPV 9.5 Immature Gran % (Auto) 4.900 H Neut % (Auto) 79.6 H Lymph % (Auto) 8.4 L [place] % (Auto) 4.8 Eos % (Auto) 1.5 Baso % (Auto) 0.8 Absolute Neuts (auto) 8.0 H Absolute Lymphs (auto) 0.85 Nucleated RBC % 0 Sodium 141 Potassium 3.7 Chloride 109 H Carbon Dioxide 27.0 Anion Gap 5 BUN 14 Creatinine 0.75 Estim Creat Clear Calc 56.76 Est GFR (MDRD) Af Amer 129 Est GFR (MDRD) Non-Af 106 BUN/Creatinine Ratio 18.6 Glucose 90 Lactic Acid Calcium 9.3 Total Bilirubin Direct Bilirubin AST ALT Alkaline Phosphatase Troponin I Total Protein Albumin Globulin Lipase Urine Color Yellow Urine Clarity Clear Urine pH 7.0 Ur Specific [place] 1.010 Urine Protein 30 H Urine Glucose (UA) Normal Urine Ketones Negative Urine Occult Blood 25 H Urine Nitrite Negative Urine Bilirubin Negative Urine Urobilinogen Normal Ur Leukocyte Esterase 25 H Urine RBC 0 SEEN Urine WBC 0-5 SEEN Ur Squamous Epith Cells 0-5 SEEN Urine Bacteria RARE Urine Mucus 0 SEEN Discharge Diet: Low fat/ Low Cholesterol Discharge Activity: Return to Normal Activity Home Medications: Medications to take at Discharge Diltiazem CD [Cardizem CD] 240 mg PO DAILY 11/12/15 Tamsulosin HCl [Flomax] 0.4 mg PO DAILY 11/12/15 Aspirin [Aspir 81] 81 mg PO DAILY 05/19/19 Bupropion HCl [Wellbutrin Xl] 300 mg PO DAILY 05/19/19 Ferrous Sulfate [Ferosul] 325 mg PO DAILY 05/19/19 Trazodone HCl 100 mg PO QHS 05/19/19 Acetaminophen [Tylenol Tablet] 650 mg PO Q6H PRN PRN tab 05/20/19 Primary Care Physician: Reno Park MD [Primary Care Provider] - Within 2 Weeks Please Follow Up With: Movement disorder clinic When: 3-6 weeks Disposition: Snf facility Minutes spent on discharge:: 32 Patient Condition:: Stable Medical Necessity - Tobacco Use Smoking Status: Current some day smoker Tobacco Use: Cigarettes Meaningful Use Info Meaningful Use Diagnoses (Choose all that apply): None applicable Code Visit OBSV E&M: 18369 Observation care discharge
[2019-05-20] MEDS: Acetaminophen 325 MG Tablet 650 MG PO (12:04)
[2019-05-20] MEDS: Ensure Clear 120 ML Liquid PO (12:09)
--- NOTE | 2019-05-20 15:05 | CHAPLAIN ---
Type of Pastoral Visit _x__ Initial Visit ___ Follow-up Visit ___ On-call Visit ___ General Patient Visit ___ Spiritual Assessment ___ Family Conference ___ Bereavement ___ Rapid Response ___ Code Blue ___ Other (describe below) Pastoral Care Referral From _x__ Patient ___ Family ___ Nurse ___ Physician ___ Cook Pie ___ Air Crew Member ___ Other (describe below) Sacrament/Intervention _x__ Active listening ___ Anointing ___ Evangelical ___ Bereavement ___ Communion ___ Nichelle exploration ___ ___ Life review _x__ Prayer ___ Reconciliation ___ Sacrament of Sick _x__ Supportive presence ___ Wedding ___ Other (describe below) Pastoral Comments
[2019-05-20 16:15] VITALS: BP 130/64; PULSE 75; RESP 16; TEMP 36.7; O2SAT 94
--- NOTE | 2019-05-20 16:45 | NURSING ---
Report given to Brian SAHU at [facility] at this time.
== END 2019-05-20 16:35 | disposition skilled nursing facility (03) ==
LOC: ED 12:13 → MS3 15:16
PROVIDERS: Admitting Provider Family Medicine; Emergency Provider Emergency Medicine; Family Provider Family Medicine; PCP Family Medicine
DX: R41.0 Disorientation, unspecified (principal); F03.90 Unspecified dementia, unspecified severity, without behavioral disturbance, psychotic disturbance, mood disturbance, and anxiety; E86.0 Dehydration; N40.0 Benign prostatic hyperplasia without lower urinary tract symptoms; D50.9 Iron deficiency anemia, unspecified; F32.9 Major depressive disorder, single episode, unspecified; S72.112D Displaced fracture of greater trochanter of left femur, subsequent encounter for closed fracture with routine healing; W19.XXXD Unspecified fall, subsequent encounter; F17.210 Nicotine dependence, cigarettes, uncomplicated; I10 Essential (primary) hypertension; Z79.899 Other long term (current) drug therapy; Z79.82 Long term (current) use of aspirin; Z87.440 Personal history of urinary (tract) infections
CPT/HCPCS: 36415; 70450; 71045; 80048; 80076; 81001; 83605; 83690; 84484; 85025; 87040; 93005; 96360; 96361; 96372; 97163; 97166; 97802; 99218; 99285; J7030; A4216; G0378

== ENCOUNTER 2019-06-02 10:30 | Emergency (ER) | payer MEDICARE, SELFPAY ==
[2019-05-19 16:00] VITALS: BMI 21.8
[2019-06-02 10:32] VITALS: BP 125/90; PULSE 79; RESP 16; TEMP 36.7; O2SAT 96; BMI 23.2
--- NOTE | 2019-06-02 11:51 | CT_ITS ---
STUDY: CT BRAIN WITHOUT CONTRAST REASON FOR EXAM: Male, 79 years old. Contusion of the left orbit due to a fall. RADIATION DOSAGE (If Supplied By Facility): CTDIvol = ( 44.99 ) mGy, DLP = ( 812.98 ) mGycm TECHNIQUE: Transaxial CT imaging of the brain was performed without administration of intravenous contrast material. Individualized dose optimization techniques were used for this CT. COMPARISON: Comparison is made with prior study dated May 19, 2019. FINDINGS: Normal soft tissue structures. Normal calvarium. There is mild cerebral atrophy with widening of the extra-axial spaces and ventricular dilatation. There are areas of decreased attenuation within the white matter tracts of the supratentorial brain, consistent with microvascular disease changes. Normal basal ganglia and thalami. Normal brainstem. There is mild cerebellar atrophy. There is no intracranial hemorrhage. There are no findings of an acute ischemic infarction. Atherosclerotic calcification of the vertebral arteries and cavernous portions of the internal carotid arteries bilaterally. Normal visualized paranasal sinuses. CT/Brain/Head without Contrast IMPRESSION: Chronic involutional changes of the brain. Electronically Signed: Cuong Pierson, at 13:02 EDT , Service support ,
--- NOTE | 2019-06-02 11:52 | RAD_ITS ---
STUDY: X-RAY - PELVIS AND LEFT HIP REASON FOR EXAM: Male, 79 years old. Left hip pain following a fall. Prior left hip replacement. TECHNIQUE: 3 views of the pelvis and hip. COMPARISON: Comparison is made with prior examination dated May 08, 2014. FINDINGS: The patient is status post left hip replacement. There is evidence of a nondisplaced fracture involving the greater trochanter of the proximal left femur. RAD/HIP, UNI W/ Pelvis 2-3 Views IMPRESSION: Nondisplaced fracture involving the greater trochanter of the proximal left femur in a patient with a left hip replacement. Electronically Signed: Cuong Pierson, at 13:32 EDT , Service support ,
[2019-06-02 12:01] LABS: Hematocrit 32.2 % (40-54); Hemoglobin 10.2 g/dL (13.0-16.5); Mean Corp Hgb Conc 31.7 g/dL (32-36); Mean Corpuscular Volume 97.9 fL (80-94); Mean Platelet Vol. 9.1 fl (6.2-12.0); POSITIVE COUNT YES; POSITIVE MORPHOLOGY YES; Platelet Count 251 K/mm3 (150-450); RBC Distribution Width SD 53.6 fl (35.1-43.9); Red Blood Count 3.29 M/mm3 (4.6-6.2); White Blood Count 7.3 K/mm3 (4.4-11.0)
[2019-06-02 12:02] LABS: Differential Indicated MANUAL DIFF
[2019-06-02 12:08] LABS: International Normalized Ratio 1.2; Partial Thromboplast Time 35.6 Seconds (24.1-36.2); Prothrombin Time (Protime)PT. 15.2 SECONDS (11.7-14.9)
[2019-06-02 12:10] LABS: Anion Gap 4 (5-15); BUN 20 mg/dL (7-18); BUN/Creat Ratio 21.1 RATIO (10-20); Calcium,Total 9.7 mg/dL (8.5-10.1); Chloride 107 mmol/L (98-107); Creatinine, Serum 0.95 mg/dL (0.70-1.30); EST Glomerular Filtration Rate 81 mL/min (>60); Est Glom Filt Rate - Afr Amer 99 mL/min (>60); Glucose 96 mg/dL (74-106); Potassium 4.3 mmol/L (3.5-5.1); Sodium Level 140 mmol/L (136-145)
[2019-06-02 12:19] LABS: Bacteria 0 SEEN /hpf (None Seen); Mucous, Urine 0 SEEN /hpf (<or=2+)
[2019-06-02 12:20] LABS: Color, Urine Yellow (Yellow); Glucose, Dipstick Normal (Normal); Ketone-Dipstick Negative (Negative); Leukocyte Esterase-Dipstick 25 /ul (Negative); Nitrite-Dipstick Negative (Negative); Occult Blood-Urine Negative /ul (Negative); Protein-Dipstick Negative (Negative); Specific Gravity, Urine 1.015 (1.002-1.030); Urine Bilirubin Dipstick Negative (Negative); Urine Clarity Clear (Clear); Urine Urobilinogen Normal (Normal)
[2019-06-02 12:27] LABS: Basophil 1 % (0-1); Lymphocyte 10 % (19-41); Monocyte 9 % (0-10); Neutrophil-Segmented 80 % (47-70); Platelet Estimate ADEQUATE (ADEQ); Red Cell Morphology NORM C+C NORMAL (NORM C&C); Total Cells Counted 100 (MANUAL DIFF)
[2019-06-02 12:29] LABS: Red Blood Cells-Urine 0-5 SEEN /hpf (0-5); Squamous Epithelial Cells - UA 0-5 SEEN /hpf (0-5); White Blood Cells 0-5 SEEN /hpf (0-5)
[2019-06-02 12:29] LABS: Absolute Lymphocyte Count 0.73 X10^3/uL (0.83-4.51); Absolute Neutrophil Count 5.8 X10^3/uL (2.0-7.7); Lymphocyte # 0.73 X10^3/ul (4.0)
--- NOTE | 2019-06-02 12:56 | EKG12_ITS ---
Test Reason : FALL, ST ELEVATION Blood Pressure : / mmHG Vent. Rate : 081 BPM Atrial Rate : 081 BPM P-R Int : 158 ms QRS Dur : 086 ms QT Int : 388 ms P-R-T Axes : 000 016 -14 degrees QTc Int : 450 ms Sinus rhythm with occasional Premature ventricular complexes Nonspecific ST and T wave abnormality Abnormal ECG Confirmed by ROSIBEL CUNNINGHAM ([id number]), editorial specialist KELSEY CAI ([id number]) on 06/06/2019 12:26:45 PM Referred By: ARUNA/SANDRA Confirmed By:ROSIBEL CUNNINGHAM
[2019-06-02 13:52] VITALS: BP 120/93; PULSE 84; RESP 17
--- NOTE | 2019-06-02 15:41 | ED.DCSUM_ITS ---
- ER Visit Summary Date of Service: 06/02/19 Chief Complaint: Fall History of Present Illness: The patient is a 79 M who presents after a fall that occurred today at the [facility]. Patient tried to get out of his wheelchair today and fell. Patient is supposed to be non-weightbearing. Patient sometimes will try to get out of his wheelchair on his own which causes him to fall. Patient hit the left side of his head today. Patient denies any loss of consciousness. Patient has a prior fracture of his left greater trochanter. Family is concerned over the head injury and possible displacement of the greater trochanter fracture. Physical Examination: Vital signs are stable. Patient is afebrile. Patient is in no acute distress. There is some edema and ecchymosis over the left temporal area. There is superficial abrasions over the lateral left eyebrow. There is no active bleeding noted. Pupils are equal, round, and reactive to light bilaterally. Extraocular muscles are intact. Oral mucosa is pink and moist. Neck is supple. Trachea is midline. There is no JVD noted. Heart was regular rate and rhythm. There is a grade 3/6 systolic murmur. Abdomen is soft and nontender. Cranial nerves II through XII are intact. There are no focal motor or sensory deficits noted. There is mild tenderness over the greater trochanter of the left hip. There is no obvious deformity noted. Patient was able to sit up and lay back without difficulty here in the emergency department. Test Results: X-rays of the left hip were obtained. There is a fracture of the greater trochanter. There are no prior x-rays here for comparison. CT scan of the brain does not show any acute abnormality. EKG showed normal sinus rhythm with a rate of 81. There is a PVC noted. There are nonspecific ST-T wave changes. CBC, basic metabolic profile, PT with INR, and PTT were obtained were all within normal limits. Urinalysis does not show any evidence of urinary tract infection. Emergency Department Course and Treatment: X-rays were shown to the patient's family. She does not remember seeing the x-ray from before however based on what she was described, it does not appear as though the fracture fragment has moved significantly. Patient will remain nonweightbearing. Patient was instructed to follow-up with his primary care physician or the physician at the [facility] in 5 to 7 days. Patient and family understood and were agreeable with the plan. All questions were answered. Disposition: Discharge home Impression: 1. Closed head injury 2. Fracture left greater trochanter This note was generated with [employer] dictation software. It may contain incorrect words, spelling, and punctuation that were not noted in review of the chart prior to signing ED Disposition - Plan for ED Patient: Disposition: Home or Assisted Living Diagnosis: Closed left hip fracture, Closed head injury Instructions: FALL, Mechanical Referrals: Reno Park MD [Primary Care Provider] - 5-7 Days
[2019-06-03 12:31] LABS: Pathologist Review Reviewed
== END 2019-06-02 16:30 | disposition home or self-care (01) ==
PROVIDERS: Emergency Provider Emergency Medicine; Family Provider Family Medicine; PCP Family Medicine
DX: S00.212A Abrasion of left eyelid and periocular area, initial encounter (principal); S09.90XA Unspecified injury of head, initial encounter; W05.0XXA Fall from non-moving wheelchair, initial encounter; Y93.9 Activity, unspecified; Y92.9 Unspecified place or not applicable; Y99.9 Unspecified external cause status; S72.115D Nondisplaced fracture of greater trochanter of left femur, subsequent encounter for closed fracture with routine healing; I49.3 Ventricular premature depolarization; E11.9 Type 2 diabetes mellitus without complications; Z79.899 Other long term (current) drug therapy; Z79.82 Long term (current) use of aspirin; M25.552 Pain in left hip
CPT/HCPCS: 70450; 73502; 80048; 81001; 85025; 85610; 85730; 93005; 99285; A4216

== ENCOUNTER → 2019-06-15 09:38 | Outpatient (CLI) | payer MEDICARE, SELFPAY ==
[2019-06-02 10:32] VITALS: BMI 23.2
--- NOTE | 2019-06-15 09:48 | MRI_ITS ---
STUDY: MRI BRAIN WITH AND WITHOUT CONTRAST REASON FOR EXAM: Male, 79 years old. confusion -- dramatic changes in behavior, loss of self help skills, several falls, hit head frontal 3 weeks ago, no LOC. TECHNIQUE: Standardized multiplanar fat and water weighted pulse sequences were obtained. IV Dotarem 14 was administered for the contrast portion of the examination. COMPARISON: None. FINDINGS: There is moderate cerebral atrophy with widening of the extra-axial spaces and ventricular dilatation. There are multiple white matter hyperintensities, distributed throughout the deep white matter tracts of the cerebral hemispheres, consistent with moderate chronic white matter ischemic changes. Normal bilateral basal ganglia. Normal thalami. There is no extra-axial fluid accumulation. Normal flow voids within the major intracranial circulation suggesting patency by spin echo criteria. Normal venous enhancement. There is no enhancing intra-axial or extra-axial abnormality. Normal sella turcica, pituitary gland, infundibular stalk, optic chiasm and hypothalamus. Normal tectal plate and pineal gland. Normal midbrain, catina and medulla. Normal cerebellum. Normal basal cisterns. MRI/Brain W/WO Contrast IMPRESSION: No acute intracranial abnormality or masses. Moderate involutional changes. Electronically Signed: Maximino Irene MD at 9:18 EDT Tel , Service support ,
== END ==
PROVIDERS: Family Provider Family Medicine; PCP Family Medicine; Referring Provider Family Medicine; Visit Provider Family Medicine
DX: R41.0 Disorientation, unspecified (principal); R53.83 Other fatigue
CPT/HCPCS: 70553; A9575

== ENCOUNTER 2019-06-29 11:15 | Inpatient (IN) | payer MEDICARE, SELFPAY ==
[2019-06-29 11:17] VITALS: BP 121/85; PULSE 105; RESP 16; TEMP 37; O2SAT 93; BMI 23.4
--- NOTE | 2019-06-29 11:38 | ED.VISSUMM ---
- ER Visit Summary Date of Service: 06/29/19 Chief Complaint: Constipation with no BM for around 5 to 7 days per [facility]. History of Present Illness: The patient is a 79 M history of dementia and a recent hip fracture which she was hospitalized and now is been discharged to [facility] for about 6 weeks. They thought he was dehydrated and put him on IV fluids. They noted he has not had a bowel movement for almost a week. No vomiting. No fever. Much of the history is from the patient's daughter. She is present in the room. He is a very limited informant due to his dementia. Physical Examination: Elderly male no acute distress. Vital signs are stable afebrile. HEENT exam dry mucous membranes otherwise unremarkable. Neck nontender. Lungs clear to auscultation. Heart regular rhythm no murmur. Abdomen is distended but soft. Hypoactive bowel sounds. No peritoneal signs. Patient moving all 4 extremities. No edema. Neurologically is awake and alert. He is confused at his baseline. Test Results: [facility]. CBC shows white count 12.8. Hemoglobin of 10 which is his baseline chronic anemia. Electrolytes show dehydration with a BUN of 54 creatinine 1.6 previously they were normal. His potassium is also low at 2.5 he has a normal gap. Liver enzymes are unremarkable except for his alkaline phosphatase elevated at 199. Patient normal at 88. We obtained her own plain films which was very concerning for dilated bowel potentially an obstruction or even a volvulus. He also had a very large hiatal hernia and increased stool. A CAT scan was then obtained which is pending formal radiology interpretation but he has an obvious bowel obstruction with a large hiatal hernia and free air. Consistent with a bowel perforation with large amounts of free air. I also discussed this with the radiologist.. Emergency Department Course and Treatment: Patient being treated with IV fluids. Morphine and Zofran. I had a long discussion with both his daughters in the room. They know their dad is been doing very poorly after his hip surgery. He has had dementia which is progressively gotten worse. And they state that he is lost his will to survive and he would not want to be aggressive in his situation. I will have him admitted here and made DNR. They do not want any central lines, intubation or CPR. They understand that this is terminal and that he may pass in the next several hours. Treatment Plan: [] Disposition: Discharge Impression: Acute bowel obstruction with perforation Severe dehydration Hypokalemia History of dementia Status post recent hip fracture and surgical repair After long discussion with daughters patient made DNR Comfort Care This note was generated with [employer] dictation software. It may contain incorrect words, spelling, and punctuation that were not noted in review of the chart prior to signing ED Disposition - Plan for ED Patient: Referrals: Saul Almonte MD [Primary Care Provider] -
[2019-06-29] MEDS: 0.9% Normal Saline 1,000 ML 1000 ML IV (11:53)
[2019-06-29 11:56] LABS: Absolute Lymphocyte Count 0.22 X10^3/uL (0.83-4.51); Absolute Neutrophil Count 11.9 X10^3/uL (2.0-7.7); Basophil# 0.02 X10^3/uL; Basophil% 0.2 % (0-1); Eosinophil# 0.09 X10^3/uL; Eosinophils% 0.7 % (0-5); Hematocrit 31.5 % (40-54); Lymphocyte # 0.22 X10^3/ul (4.0); Lymphocyte % 1.7 % (19-41); Mean Corp Hgb Conc 31.7 g/dL (32-36); Mean Corpuscular Hgb 30.4 pg (27.0-32.0); Mean Corpuscular Volume 95.7 fL (80-94); Mean Platelet Vol. 8.8 fl (6.2-12.0); Monocyte# 0.53 X10^3/uL; Monocyte% 4.1 % (0-10); NRBC Flagged by Analyzer 0 % (0-5); Neutrophil % 92.7 % (47-70); POSITIVE DIFFERENTIAL YES; Platelet Count 245 K/mm3 (150-450); RBC Distribution Width CV 16.5 % (11.6-14.6); Red Blood Count 3.29 M/mm3 (4.6-6.2); White Blood Count 12.8 K/mm3 (4.4-11.0)
[2019-06-29 11:58] LABS: Differential Indicated SCAN CRITERIA MET
--- NOTE | 2019-06-29 12:20 | ED.RN ---
potassium 2.1, dr yang informed
[2019-06-29 12:21] LABS: Anion Gap 7 (5-15); BUN 54 mg/dL (7-18); BUN/Creat Ratio 33.8 RATIO (10-20); Calcium,Total 9.4 mg/dL (8.5-10.1); Chloride 105 mmol/L (98-107); EST Glomerular Filtration Rate 45 mL/min (>60); Est Glom Filt Rate - Afr Amer 54 mL/min (>60); Estimated Creatinine Clearance 36.22 ml/min; Glucose 109 mg/dL (74-106); Potassium 2.5 mmol/L (3.5-5.1); Sodium Level 141 mmol/L (136-145)
--- NOTE | 2019-06-29 13:00 | RAD_ITS ---
STUDY: X-RAY - ABDOMEN/PELVIS REASON FOR EXAM: Male, 79 years old. Constipation. TECHNIQUE: Two AP supine views of the abdomen and pelvis. COMPARISON: None. FINDINGS: Large hiatal hernia. Moderate amount of fecal material is seen in the colon. There is moderate to marked degree of distention of the colon. This extends down to the region of the rectosigmoid colon. I suspect free intraperitoneal air. The visualized liver, spleen and kidneys are grossly normal in size and morphology. There are calcified phleboliths in the pelvis. There are diffuse degenerative changes of the visualized lumbar spine. Prior fusion at the L4-L5 level. RAD/Abdomen Single View IMPRESSION: Distended colon. I suspect free intraperitoneal air. Large hiatal hernia. Electronically Signed: Cuong Pierson, at 13:33 EDT , Service support ,
[2019-06-29 13:38] VITALS: RESP 14
--- NOTE | 2019-06-29 13:47 | CT_ITS ---
We are attempting to reach an attending provider to discuss findings. An addendum with communication details will be sent when the communication is complete. STUDY: CT ABDOMEN AND PELVIS WITH CONTRAST REASON FOR EXAM: Male, 79 years old. Constipation for one week RADIATION DOSAGE (If Supplied By Facility): CTDIvol = ( 25.31 ) mGy, DLP = ( 1280.21 ) mGycm TECHNIQUE: Transaxial images were obtained from the dome of the diaphragm to the symphysis pubis without oral contrast. IV Isovue 370 75mL was administered. Sagittal and coronal images were reconstructed. Individualized dose optimization techniques were used for this CT. COMPARISON: None. FINDINGS: The heart is enlarged and there is multivessel coronary artery calcification. There is a very large hiatal hernia containing both stomach and bowel in association with bibasilar atelectasis and small bilateral effusions Normal liver. Normal gallbladder and extrahepatic biliary system. Normal spleen. Pancreas is atrophic. Normal bilateral adrenal glands. No evidence for renal obstruction or ureteral calculus. There is a small left renal cyst. Normal visualized stomach. There are distended loops of small bowel as well as colon which is fecal filled to the level of the distal descending and rectosigmoid junction where there is transition to normal caliber suggesting obstructing lesion.. No evidence for acute appendicitis.. 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 Normal inferior vena cava. Normal retroperitoneum. Normal urinary bladder. Normal abdominal wall. Lumbar spine demonstrates degenerative changes. There is grade 1 spinal listhesis at L5-S1. Postsurgical changes status post bilateral laminectomy and posterior fusion at L5-S1. Left hip prosthesis is noted. CT/Abdomen/Pelvis WITH Contrast IMPRESSION: Massive hiatal hernia containing both stomach and bowel. Findings suggestive of colonic obstruction at the level of the distal descending sigmoid junction in association with pneumoperitoneum consistent with bowel perforation Electronically Signed: Koby Huggins MD at 16:16 EDT , Service support ,
[2019-06-29] MEDS: LORazepam 2 MG/ML Syringe 1 MG IV (14:02)
[2019-06-29 14:25] LABS: Lipase 88 U/L (73-393)
[2019-06-29 14:27] LABS: AST(SGOT) 31 U/L (15-37); Alanine Aminotransfer ALT/SGPT 26 U/L (16-61); Albumin, Serum 3.1 g/dL (3.2-5.0); Alkaline Phosphatase 199 U/L (45-117); Bilirubin, Direct 0.22 mg/dL (0.00-0.30); Globulin 3.6 g/dL (2.2-4.2); Protein, Total 6.7 g/dL (6.4-8.2)
[2019-06-29 15:14] VITALS: BP 91/65; PULSE 68; RESP 20; O2SAT 98
--- NOTE | 2019-06-29 16:31 | HP.PCM_ITS ---
<Yeny Villa - Last Filed: 06/29/19 16:44> Problem List (1) Closed left hip fracture Status: Resolved (2) Dementia Status: Chronic (3) BPH (benign prostatic hyperplasia) Status: Chronic (4) Iron deficiency anemia Status: Chronic (5) Depression Status: Chronic History of Present Illness Date of Admission: 06/29/19 Chief Complaint: Constipation, abdominal distention. The patient is a 79 year old M who presents emergency room from [facility] due to constipation and abdominal distention. Patient lethargic during assessment and HPI provided by 2 daughters at bedside. Daughter states that patient had a fall with hip fracture approximately 6 weeks ago and has had declining health since that time. They report underlying dementia and patient has been agitated and combative at [facility]. ER physician discussed CT results with family which demonstrates bowel obstruction with perforation and family would like patient to be made DNR CC and focus on comfort measures. Past Medical History Past Medical History (Chronic Problems): Chronic Problems Dementia (Chronic) BPH (benign prostatic hyperplasia) (Chronic) Iron deficiency anemia (Chronic) Depression (Chronic) Allergies oseltamivir [From Tamiflu] Allergy (Verified 06/29/19 11:16) Unknown Home Medications: Ambulatory Orders Medication Instructions Recorded Diltiazem CD [Cardizem CD] 240 mg PO DAILY 11/12/15 Tamsulosin HCl [Flomax] 0.4 mg PO DAILY 11/12/15 Aspirin [Aspir 81] 81 mg PO DAILY 05/19/19 Bupropion HCl [Wellbutrin Xl] 300 mg PO DAILY 05/19/19 Ferrous Sulfate [Ferosul] 325 mg PO BID 05/19/19 Lorazepam [Ativan] 0.5 mg PO Q6H PRN PRN 06/02/19 Sertraline HCl [Zoloft] 50 mg PO DAILY 06/02/19 Acetaminophen [Tylenol Tablet] 650 mg PO Q4H PRN PRN 06/29/19 Hydrocodone/Acetaminophen 1 ea PO BID 06/29/19 [Hydrocodon-Acetaminophen 5-325] Magnesium Hydroxide [Milk Of 30 ml PO DAILY PRN PRN 06/29/19 Magnesia] Memantine HCl [Namenda] 10 mg PO BID 06/29/19 Multivitamin [Daily Multiple 1 tab PO DAILY 06/29/19 Vitamin] Polyethylene Glycol 3350 [Miralax] 17 gm PO DAILY 06/29/19 Potassium Chloride [Klor-Con M20] 20 meq PO QHS 06/29/19 Sennosides/Docusate Sodium [Senna 2 tab PO QHS 06/29/19 Plus 8.6-50 mg Tablet] traZODone [Desyrel] 75 mg PO QHS 06/29/19 Surgical History: total hip arthroplasty - left, - - Ankle and back surgery Psychiatric History: - - Dementia Lives: Prison Smoking Status: Never smoker Alcohol: None Drugs: None - *Family History Maternal History Items: - - Unable to obtain due to lethargy. Paternal History Items: - - Unable to obtain due to lethargy. Review of Systems Gastrointestinal: Reports: Abdominal Pain, Constipation Unable to obtain accurate/complete ROS d/t: Unable to obtain ROS from patient due to lethargy. Comment: Family reports abdominal pain and constipation. VTE Information - Inpt Only VTE Present on Admission: No VTE Mechan Device Prophylaxis: None Reason prophylaxis not ordered:: Hospice Care Patient Problems: Active and Suspected Problems Perforated abdominal viscus (Acute) - Physical Exam Vitals/I&O's: Vital Signs Temp Pulse Resp BP Pulse Ox 98.6 F 68 20 H 91/65 98 06/29/19 11:17 06/29/19 15:14 06/29/19 15:14 06/29/19 15:14 06/29/19 15:14 Oxygen Flow Rate (L/min) 2 Oxygen Delivery Method Nasal Cannula Weight: 154 lb 1.65 oz Body Mass Index (BMI) 23.4 Intake and Output for Last 24 Hours 06/27/19 06/28/19 06/29/19 23:59 23:59 23:59 Intake Total 1000 / 1000 Balance 1000 / 1000 General: Lethargic Oral: Dry Mucosa Neck: Supple, No JVD, Negative Carotid Bruits Lungs: Diminished, Tachypneic Cardiovascular: Regular rate, No murmurs Abdomen: Hypoactive Bowel Sounds, Distended, - - Firm Extremities: No clubbing, No cyanosis, No edema, Capillary Refill Less than 3 Seconds Skin: No rashes, No breakdown Musculoskeletal: No Tenderness to Palpation of Joints or Extremities Neurological: Cranial nerves II-XII grossly intact Psych/Mental Status: - - Unable to assess Laboratory Results 06/29/19 11:50: WBC 12.8 H, RBC 3.29 L, Hgb 10.0 L, Hct 31.5 L, MCV 95.7 H, MCH 30.4, MCHC 31.7 L, RDW Std Deviation 58.0 H, RDW Coeff of Mandy 16.5 H, Plt Count 245, MPV 8.8, Immature Gran % (Auto) 0.600, Neut % (Auto) 92.7 H, Lymph % (Auto) 1.7 L, Brule % (Auto) 4.1, Eos % (Auto) 0.7, Baso % (Auto) 0.2, Absolute Neuts (auto) 11.9 H, Absolute Lymphs (auto) 0.22 L, Nucleated RBC % 0 06/29/19 11:50: Sodium 141, Potassium 2.5 L*, Chloride 105, Carbon Dioxide 29.0, Anion Gap 7, BUN 54 H, Creatinine 1.60 H, Estim Creat Clear Calc 36.22, Est GFR (MDRD) Af Amer 54 L, Est GFR (MDRD) Non-Af 45 L, BUN/Creatinine Ratio 33.8 H, Glucose 109 H, Calcium 9.4 06/29/19 11:50: Total Bilirubin 0.60, Direct Bilirubin 0.22, AST 31, ALT 26, Alkaline Phosphatase 199 H, Total Protein 6.7, Albumin 3.1 L, Globulin 3.6 06/29/19 11:50: Lipase 88 Assessment/Plan All Active Problems Perforated abdominal viscus (Acute) Closed left hip fracture (Resolved) 1. Hospice transition- Hospice PRN protocol medications ordered. 2. Acute bowel obstruction with perforation-family does not want any treatment. Hospice/comfort measures. 3. Acute kidney injury-initially received IV fluids in ER. Discontinue further fluids. 4. Hypokalemia 5. History of dementia-recent significant decline in health status. 6. BPH DVT prophylaxis-not indicated, hospice CODE STATUS: DNR CC This patient was seen by SARBJIT Guerra under the supervision of Dr. Chin. <Bal Chin - Last Filed: 06/29/19 16:51> Problem List (1) Perforated abdominal viscus Status: Acute History of Present Illness The patient is a 79 year old M presents with a 2-day history of worsening abdominal pain. Presently 2 days ago, according to the daughters, patient had intense abdominal pain and felt like he was going to . Presented to the emergency room today and had a CAT scan that showed bowel obstruction and perforation. Conversation was held with the family and the decision was to make him comfortable. [] Past Medical History Allergies oseltamivir [From Tamiflu] Allergy (Verified 06/29/19 11:16) Unknown Surgical History: total hip arthroplasty, - Psychiatric History: - Lives: Prison Smoking Status: Never smoker Alcohol: None Drugs: None - *Family History Maternal History Items: - Paternal History Items: - Review of Systems Comment: Unable to obtain any review of systems from the patient as he is confused. VTE Information - Inpt Only VTE Present on Admission: No VTE Mechan Device Prophylaxis: None Reason prophylaxis not ordered:: Hospice Care - Physical Exam Vitals/I&O's: Vital Signs Temp Pulse Resp BP Pulse Ox 37.0 C 68 20 H 91/65 98 06/29/19 11:17 06/29/19 15:14 06/29/19 15:14 06/29/19 15:14 06/29/19 15:14 Oxygen Flow Rate (L/min) 2 Oxygen Delivery Method Nasal Cannula Weight: 69.9 kg Body Mass Index (BMI) 23.4 Intake and Output for Last 24 Hours 06/27/19 06/28/19 06/29/19 23:59 23:59 23:59 Intake Total 1000 / 1000 Balance 1000 / 1000 General: Confused, Lethargic, - - Afebrile. Pale. HEENT: Atraumatic, Normocephalic Oral: Dry Mucosa Neck: No Nodes, Trachea Midline Lungs: Diminished, Tachypneic Cardiovascular: Regular rate, No murmurs, - - Had a 3/6 systolic ejection murmur at the right upper sternal border Abdomen: Hypoactive Bowel Sounds, Distended, - Extremities: No clubbing, No edema, Capillary Refill Less than 3 Seconds Skin: No rashes, No breakdown Musculoskeletal: No Tenderness to Palpation of Joints or Extremities Neurological: Deep Tendon Reflexes 2+/4 and Symmetrical, - - No clonus Psych/Mental Status: Agitated Laboratory Results 06/29/19 11:50: WBC 12.8 H, RBC 3.29 L, Hgb 10.0 L, Hct 31.5 L, MCV 95.7 H, MCH 30.4, MCHC 31.7 L, RDW Std Deviation 58.0 H, RDW Coeff of Mandy 16.5 H, Plt Count 245, MPV 8.8, Immature Gran % (Auto) 0.600, Neut % (Auto) 92.7 H, Lymph % (Auto) 1.7 L, Brule % (Auto) 4.1, Eos % (Auto) 0.7, Baso % (Auto) 0.2, Absolute Neuts (auto) 11.9 H, Absolute Lymphs (auto) 0.22 L, Nucleated RBC % 0 06/29/19 11:50: Sodium 141, Potassium 2.5 L*, Chloride 105, Carbon Dioxide 29.0, Anion Gap 7, BUN 54 H, Creatinine 1.60 H, Estim Creat Clear Calc 36.22, Est GFR (MDRD) Af Amer 54 L, Est GFR (MDRD) Non-Af 45 L, BUN/Creatinine Ratio 33.8 H, Glucose 109 H, Calcium 9.4 06/29/19 11:50: Total Bilirubin 0.60, Direct Bilirubin 0.22, AST 31, ALT 26, Alkaline Phosphatase 199 H, Total Protein 6.7, Albumin 3.1 L, Globulin 3.6 06/29/19 11:50: Lipase 88 Clinical Impression(s) from Imaging Studies KUB X-Ray 06/29/19 13:00 IMPRESSION: Distended colon. I suspect free intraperitoneal air. Large hiatal hernia. Electronically Signed: Cuong Pierson, at 13:33 EDT , Service support , Abdomen/Pelvis CT 06/29/19 13:47 IMPRESSION: Massive hiatal hernia containing both stomach and bowel. Findings suggestive of colonic obstruction at the level of the distal descending sigmoid junction in association with pneumoperitoneum consistent with bowel perforation Electronically Signed: Koby Huggins MD at 16:16 EDT , Service support , ADDENDUM: 06/29/19 1625 IMPRESSION: Massive hiatal hernia containing both stomach and bowel. Findings suggestive of colonic obstruction at the level of the distal descending sigmoid junction in association with pneumoperitoneum consistent with bowel perforation N.B. : The above information has been verbally conveyed by Koby Huggins MD to Dr. Koby Thurman MD, on 06/29/2019 16:18:48 (ET). Electronically Signed: Koby Huggins MD at 16:16 EDT , Service support , Assessment/Plan Patient seen and examined independently. Data reviewed. I agree with the above note by the nurse practitioner. 1. Perforated abdominal viscus * Onset undetermined but may have began 2 days ago when his symptoms began * Family has decided not to pursue aggressive measures which I feels appropriate and plan for care is going to be supportive 2. Acute kidney injury * Likely prerenal due to decreased oral intake * Given the patient is hospice measures no additional work-up or treatment is going to be performed 3. hypokalemia * Liquid due to decreased oral intake * We will not pursue any aggressive measures in regards to correction or additional work-up 4. Prognosis is terminal. Life expectancy is hours to possibly days 5. Advanced care planning: Patient is DNR comfort care. Plan is to aggressively treat his symptoms. Patient will be on PRN morphine as well as lorazepam. His symptoms are not well controlled may consider initiating CLINICAL TRIAL DATA MANAGER pump. Patient does survive the night and it is if it is stable could consider consultation to hospice. Code Visit Inpatient E&M: 26202 Init Hosp L3
[2019-06-29 16:48] VITALS: BMI 23.4
[2019-06-29] MEDS: morphine 8 MG/ML Syringe 6 MG IV (17:07)
[2019-06-29] MEDS: Ondansetron 4 MG/2 ML Vial IV (17:09)
[2019-06-29 17:13] VITALS: PULSE 85; RESP 16; O2SAT 93
[2019-06-29 17:30] VITALS: BP 79/44; PULSE 46; RESP 14; TEMP 36.7; O2SAT 96
[2019-06-29 17:52] VITALS: BMI 23.4
--- NOTE | 2019-06-29 18:55 | NURSING ---
bed exit left off on bed as family is present in room. requested that if the family leaves for any reason, they let us know so we can reapply the bed exit.
[2019-06-29] MEDS: Morphine 4 MG/ML Syringe IV (22:38)
[2019-06-29 22:59] VITALS: BP 82/53; PULSE 84; RESP 12; TEMP 37.2; O2SAT 97
[2019-06-30] MEDS: Morphine 4 MG/ML Syringe IV ×4 (02:40→10:55)
[2019-06-30 05:53] VITALS: BP 103/68; PULSE 86; RESP 16; TEMP 36.8; O2SAT 97
[2019-06-30] MEDS: 0.9% Saline Lock 10 ML Syringe IV ×4 (06:16→10:55)
[2019-06-30] MEDS: LORazepam 2 MG/ML Syringe 0.5 MG IV (07:23)
--- NOTE | 2019-06-30 09:43 | CASEMGMT ---
Social Work Note Pt is listed as being from [facility]. SW spoke with Charge Nurse who states Hospice has been consulted and will be meeting with pt and pt's family today. Charge Nurse states referral has been faxed to Hospice. SW to continue to follow. Ashli Yao [employer], SALES LEDGER CLERK
--- NOTE | 2019-06-30 09:45 | CASEMGMT ---
LW/POA forms in paper chart, Rae Elizabeth is listed as medical POA. JOSE Jaramillo
--- NOTE | 2019-06-30 10:45 | NURSING ---
Report called to Jaki at Hospice inpatient unit at this time.
--- NOTE | 2019-06-30 10:49 | CASEMGMT ---
Social Work Note Pt is discharging to inpatient hospice unit today. SW placed a call to Magdalena at [facility] and left her a message that pt will be transported to inpatient hospice unit today. Ashli Yao METAL MINE INSPECTOR, DURALUMIN MECHANIC
--- NOTE | 2019-06-30 12:25 | PCM.DC.SUM ---
Discharge Date and Diagnosis Date of Admission: 06/29/19 Date of Discharge: 06/30/19 - Primary Discharge Diagnosis #1 colonic obstruction with bowel perforation/pneumoperitoneum. #2 massive hiatal hernia. #3 acute kidney injury. #4 severe hypokalemia. - Secondary Discharge Diagnosis Chronic Problems Dementia (Chronic) BPH (benign prostatic hyperplasia) (Chronic) Iron deficiency anemia (Chronic) Depression (Chronic) Hospital Course and Treatment Imaging Results: Clinical Impression(s) from Imaging Studies KUB X-Ray 06/29/19 13:00 IMPRESSION: Distended colon. I suspect free intraperitoneal air. Large hiatal hernia. Electronically Signed: Cuong Pierson, at 13:33 EDT , Service support , Abdomen/Pelvis CT 06/29/19 13:47 IMPRESSION: Massive hiatal hernia containing both stomach and bowel. Findings suggestive of colonic obstruction at the level of the distal descending sigmoid junction in association with pneumoperitoneum consistent with bowel perforation Electronically Signed: Koby Huggins MD at 16:16 EDT , Service support , ADDENDUM: 06/29/19 1625 IMPRESSION: Massive hiatal hernia containing both stomach and bowel. Findings suggestive of colonic obstruction at the level of the distal descending sigmoid junction in association with pneumoperitoneum consistent with bowel perforation N.B. : The above information has been verbally conveyed by Koby Huggins MD to Dr. Koby Thurman MD, on 06/29/2019 16:18:48 (ET). Electronically Signed: Koby Huggins MD at 16:16 EDT , Service support , Operations: None Procedures: None Summary of Care Provided: Patient seen and examined on the day of discharge to inpatient hospice. Patient was lethargic and sleepy and could not answer any questions. His abdomen is very firm and rigid. He was dyspneic and tachypneic. Blood pressure is borderline, pulse ox is 97% on 4 L. The patient is a 79 year old M patient presented to the emergency room because of constipation and no bowel movement for 5 to 7 days according to the long term staff. CT scan abdomen and pelvis with contrast revealed massive hiatal hernia containing stomach and bowel, findings suggestive of colonic obstruction at the level of the distal descending sigmoid junction with pneumoperitoneum consistent with bowel perforation. Patient was found to have acute kidney injury with BUN of 54 and creatinine of 1.60 and his baseline creatinine has been normal. His potassium was severely low at 2.5. LFT and lipase were unremarkable. Patient was 79 years old and he has multiple medical problems. After discussion with the patient's family upon admission and on the day of discharge, patient's family does not want to do any aggressive treatment including surgeries and they felt that it is appropriate for comfort care only. On the day of discharge, I discussed with the patient's family about the option of hospice and palliative care. They agreed to consult hospice and palliative care. Hospice and palliative care team evaluated the patient and recommended that patient can go into inpatient hospice facility. Patient transferred to inpatient hospice in guarded condition. - Physical Exam Vitals/I&O's: Vital Signs Temp Pulse Resp BP Pulse Ox 98.3 F 86 16 103/68 97 06/30/19 05:53 06/30/19 05:53 06/30/19 05:53 06/30/19 05:53 06/30/19 05:53 Oxygen Flow Rate (L/min) 4 Oxygen Delivery Method Nasal Cannula Weight: 154 lb 1.65 oz Body Mass Index (BMI) 23.4 Intake and Output for Last 24 Hours 06/28/19 06/29/19 06/30/19 23:59 23:59 23:59 Intake Total 1000 / 1000 Balance 1000 / 1000 General: - - Sleepy, lethargic, arousable, short of breath. HEENT: Atraumatic, PERRLA, EOMI, Normocephalic Oral: No Gingival or Mucosal Lesions/ Ulcerations, Dry Mucosa Neck: Supple, No JVD, Negative Carotid Bruits, Trachea Midline, Thyroid Normal Size and Texture Lungs: Clear to auscultation, Normal air movement, No rhonchi, No wheeze, No rales, Diminished, Short of Breath, Tachypneic Cardiovascular: Regular rate, Regular Rhythm, Normal S1, Normal S2, PMI Normal Abdomen: Hypoactive Bowel Sounds, Distended, - - Rigid abdomen, guarding. Extremities: No clubbing, No cyanosis, No edema Skin: No rashes, No breakdown Lymphatic: No Cervical, Supraclavicular, or Inguinal Adenopathy Neurological: Cranial nerves II-XII grossly intact, Neuro grossly intact Psych/Mental Status: - - Unable to assess, patient was sleepy and lethargic. Laboratory Results 06/29/19 11:50: Total Bilirubin 0.60, Direct Bilirubin 0.22, AST 31, ALT 26, Alkaline Phosphatase 199 H, Total Protein 6.7, Albumin 3.1 L, Globulin 3.6 06/29/19 11:50: Lipase 88 Home Medications: Medications to take at Discharge Diltiazem CD [Cardizem CD] 240 mg PO DAILY 11/12/15 Tamsulosin HCl [Flomax] 0.4 mg PO DAILY 11/12/15 Aspirin [Aspir 81] 81 mg PO DAILY 05/19/19 Bupropion HCl [Wellbutrin Xl] 300 mg PO DAILY 05/19/19 Ferrous Sulfate [Ferosul] 325 mg PO BID 05/19/19 Lorazepam [Ativan] 0.5 mg PO Q6H PRN PRN 06/02/19 Sertraline HCl [Zoloft] 50 mg PO DAILY 06/02/19 Acetaminophen [Tylenol Tablet] 650 mg PO Q4H PRN PRN 06/29/19 Hydrocodone/Acetaminophen [Hydrocodon-Acetaminophen 5-325] 1 ea PO BID 06/29/19 Magnesium Hydroxide [Milk Of Magnesia] 30 ml PO DAILY PRN PRN 06/29/19 Memantine HCl [Namenda] 10 mg PO BID 06/29/19 Multivitamin [Daily Multiple Vitamin] 1 tab PO DAILY 06/29/19 Polyethylene Glycol 3350 [Miralax] 17 gm PO DAILY 06/29/19 Potassium Chloride [Klor-Con M20] 20 meq PO QHS 06/29/19 Sennosides/Docusate Sodium [Senna Plus 8.6-50 mg Tablet] 2 tab PO QHS 06/29/19 traZODone [Desyrel] 75 mg PO QHS 06/29/19 Primary Care Physician: Saul Almonte MD [Primary Care Provider] - Disposition: Hospice Medical Facility Minutes spent on discharge:: 32 Patient Condition:: Stable Medical Necessity - Tobacco Use Smoking Status: Never smoker Meaningful Use Info Meaningful Use Diagnoses (Choose all that apply): None applicable Code Visit Inpatient E&M: 64483 Disch Hosp
== END 2019-06-30 11:00 | disposition hospice, inpatient (51) | DRG 388 ==
LOC: ED 16:31 → MS3 16:39
PROVIDERS: Emergency Provider Emergency Medicine; Family Provider Family Medicine; PCP Family Medicine; Visit Provider Hospitalist
DX: K56.609 Unspecified intestinal obstruction, unspecified as to partial versus complete obstruction (principal); K63.1 Perforation of intestine (nontraumatic); N17.9 Acute kidney failure, unspecified; E87.6 Hypokalemia; Z66 Do not resuscitate; K44.9 Diaphragmatic hernia without obstruction or gangrene; F03.90 Unspecified dementia, unspecified severity, without behavioral disturbance, psychotic disturbance, mood disturbance, and anxiety; D50.9 Iron deficiency anemia, unspecified; N40.0 Benign prostatic hyperplasia without lower urinary tract symptoms; F32.9 Major depressive disorder, single episode, unspecified; Z51.5 Encounter for palliative care
CPT/HCPCS: 74018; 74177; 80048; 80076; 83690; 85025; 99285; Q9967; A4216; J2405